=== PATIENT | male | born 1950 | race American Indian/Alaskan Native ===

== ENCOUNTER 2018-05-18 08:41 | Outpatient (CLI) | payer MEDICARE ==
--- NOTE | 2018-05-18 10:41 | Vascular Lab Report ---
FINAL REPORT EXAM: VL CAROTID DUPLEX BILAT HISTORY: ACUTE ISCHEMIC STROKE TECHNIQUE: Carotid duplex Doppler ultrasound. Grayscale, color flow and spectral waveform images wer e obtained. PRIORS: None. FINDINGS: There is some carotid artery intimal thickening bilaterally. No significant plaque seen. On the right there is no abnormal of a damon of flow velocity. Vertebral artery flow is antegrade. On the left there is no abnormal elevation in flow velocity. Left vertebral artery flow is antegrade. IMPRESSION: Mild intimal thickening bilaterally. No findings to suggest carotid stenosis.
== END 2018-05-18 08:42 | disposition home or self-care (01) ==
LOC: VAS 08:41
PROVIDERS: ATTEND Internal Medicine
DX: I63.9 Cerebral infarction, unspecified (principal); I51.7 Cardiomegaly
CPT/HCPCS: 93306; 93880

== ENCOUNTER 2018-05-22 07:32 | Outpatient (CLI) | payer MEDICARE ==
[2018-05-22 08:21] LABS: Blood Urea Nitrogen 17 mg/dL (9-20)
--- NOTE | 2018-05-22 10:20 | Magnetic Resonance Report ---
MRI OF THE BRAIN WITHOUT CONTRAST: HISTORY: Aphasia PROCEDURE: Multiplanar, multisequence MR imaging of the brain without IV contrast was performed. FINDINGS: No relevant comparisons at this facility. A 2.4 x 2.5 x 1.7 cm subacute hemorrhage is suspected in the postero-lateral left frontal lobe. There is minimal surrounding edema on the T2-weighted sequences but no evidence for mass effect or midline shift. The remaining brain parenchyma demonstrates normal signal on all sequences. No evidence for acute ischemic stroke, mass or extra-axial fluid collection. No chronic infarct is identified. The midline structures are central. The basal cisterns are patent. Normal ventricular size. The orbital cavities and sella turcica demonstrate no abnormality. The visualized paranasal sinuses and mastoid air cells are well aerated. IMPRESSION: Left frontal lobe intraparenchymal hemorrhage as outlined above. This appears subacute. The etiology of this is unclear. I cannot entirely exclude an underlying hemorrhagic mass or AVM. Consider followup exam with IV contrast after resolution of the hemorrhage. These findings were discussed with Dr. Pollock at 1014 hrs.
--- NOTE | 2018-05-22 10:21 | Magnetic Resonance Report ---
MRA HEAD WITHOUT CONTRAST HISTORY: Acute ischemic stroke. [id number] imaging with MIP reformations of the [place] is submitted. The arteries appear widely patent and free of hemodynamically significant stenosis, aneurysm or dissection. IMPRESSION: Unremarkable MRA head.
--- NOTE | 2018-05-22 10:22 | Magnetic Resonance Report ---
MRA NECK WITH AND WITHOUT WITHOUT CONTRAST HISTORY: Acute ischemic stroke. TECHNIQUE: [id number] imaging with MIP reformations of the neck is submitted. 3-dimensional MRA following IV contrast. Rotational MIP images. FINDINGS: The bilateral carotid and vertebral systems appear widely patent and free of hemodynamically significant stenosis, aneurysm, or dissection. IMPRESSION: Normal MR angiography of the neck.
== END 2018-05-22 07:33 | disposition home or self-care (01) ==
LOC: MRI 07:32
PROVIDERS: ATTEND Internal Medicine
DX: I63.9 Cerebral infarction, unspecified (principal); I61.9 Nontraumatic intracerebral hemorrhage, unspecified
CPT/HCPCS: 36415; 70544; 70549; 70551; 82565; 84520; A9577

== ENCOUNTER 2021-02-10 12:31 | Outpatient (CLI) | payer MEDICARE ==
--- NOTE | 2021-02-10 15:01 | XRay Report ---
RIGHT FOREARM 2 VIEW(S) INDICATION / CLINICAL INFORMATION: S51.831A, puncture wound COMPARISON: None available. FINDINGS: BONES / JOINT(S): No acute fracture or subluxation. No significant arthritis. SOFT TISSUES: There appears to be mild soft tissue swelling in the distal forearm. No radiopaque fore ign bodies are seen. ADDITIONAL FINDINGS: None. Signer Name: Feliz Cervantes MD Signed: 02/10/2021 2:57 PM Workstation Name: [id number]
== END 2021-02-10 12:32 | disposition home or self-care (01) ==
LOC: XRAY 12:31
PROVIDERS: ATTEND Internal Medicine
DX: S51.831A Puncture wound without foreign body of right forearm, initial encounter (principal); M79.89 Other specified soft tissue disorders; X58.XXXA Exposure to other specified factors, initial encounter; Y93.89 Activity, other specified; Y92.89 Other specified places as the place of occurrence of the external cause; Y99.8 Other external cause status